=== PATIENT | female | born 1985 | race Two or more races ===

== ENCOUNTER 2023-10-06 13:57 | Emergency (ER) | payer BC ==
[2023-10-06 14:33] VITALS: BP 151/70; PULSE 85; RESP 16; TEMP 98.3; BMI 20.5
[2023-10-06 14:57] LABS: HCG,QUALITATIVE URINE Negative
== END 2023-10-06 15:11 | disposition home or self-care (01) ==
LOC: FER 13:57
DX: N93.9 Abnormal uterine and vaginal bleeding, unspecified (principal); R10.30 Lower abdominal pain, unspecified
CPT/HCPCS: 36415; 81003; 81015; 84703; 87086; 87491; 87591; 99283-25